=== PATIENT | female | born 1960 | race Caucasian/White ===

== ENCOUNTER → 2019-07-17 10:15 | Outpatient (BNVA) | payer BC, SELFPAY | PROVIDERS: Family Provider Nurse Practitioner; PCP Nurse Practitioner; Visit Provider Nurse Practitioner | DX: Z00.00 Encounter for general adult medical examination without abnormal findings (principal); Z12.39 Encounter for other screening for malignant neoplasm of breast; L29.9 Pruritus, unspecified | CPT/HCPCS: 80053; 80061; 81003; 85025 ==

== ENCOUNTER → 2020-10-01 08:49 | Outpatient (BNVA) | payer BC, SELFPAY | PROVIDERS: Family Provider Nurse Practitioner; PCP Nurse Practitioner; Visit Provider Nurse Practitioner | DX: Z00.00 Encounter for general adult medical examination without abnormal findings (principal); Z12.39 Encounter for other screening for malignant neoplasm of breast; Z12.11 Encounter for screening for malignant neoplasm of colon | CPT/HCPCS: 80053; 80061; 84443; 85025 ==

== ENCOUNTER → 2021-01-21 09:38 | Outpatient (BNVA) | payer BC, SELFPAY | PROVIDERS: Family Provider Nurse Practitioner; PCP Nurse Practitioner; Visit Provider Nurse Practitioner Family | DX: R10.9 Unspecified abdominal pain (principal); N39.0 Urinary tract infection, site not specified | CPT/HCPCS: 81000 ==

== ENCOUNTER → 2021-09-21 10:29 | Outpatient (BNVA) | payer BC, SELFPAY | PROVIDERS: Family Provider Nurse Practitioner; PCP Nurse Practitioner; Visit Provider Nurse Practitioner | DX: Z13.6 Encounter for screening for cardiovascular disorders | CPT/HCPCS: 80053; 80061; 81000; 85025 ==

== ENCOUNTER 2021-12-04 08:52 | Outpatient (CLI) | payer BC, SELFPAY ==
--- NOTE | 2021-12-04 08:59 | MM_ITS ---
WS: [id number] BILATERAL SCREENING DIGITAL BREAST TOMOSYNTHESIS MAMMOGRAM WITH CAD HISTORY: Screening. COMPARISON: 11/11/2020 and 02/01/2018 Bilateral CC and MLO views with tomosynthesis and synthetic mammography submitted. Computer aided det ection analyzed. Breast composition: The breasts are heterogeneously dense, which may obscure small masses. No suspici ous masses, microcalcifications or architectural distortion. Benign calcifications in each breast. MM/[id number] IMPRESSION: BI-RADS: 2-Benign FOLLOW UP: 1 Year Follow-up
== END 2021-12-04 08:53 | disposition home or self-care (01) ==
LOC: RAD 08:54
PROVIDERS: PCP Nurse Practitioner; Visit Provider Nurse Practitioner
DX: Z12.31 Encounter for screening mammogram for malignant neoplasm of breast (principal)
CPT/HCPCS: 77063; 77067

== ENCOUNTER → 2022-07-05 08:46 | Outpatient (BNVA) | payer BC, SELFPAY | PROVIDERS: PCP Nurse Practitioner; Visit Provider Nurse Practitioner Family | DX: R10.30 Lower abdominal pain, unspecified (principal) | CPT/HCPCS: 80053; 81000; 85025 ==

== ENCOUNTER → 2022-07-05 09:39 | Outpatient (BNVA) | payer BC, SELFPAY | PROVIDERS: PCP Nurse Practitioner; Visit Provider Nurse Practitioner Family | DX: R10.30 Lower abdominal pain, unspecified (principal) | CPT/HCPCS: 74018 ==

== ENCOUNTER → 2022-07-07 10:51 | Outpatient (BNVA) | payer BC, SELFPAY | PROVIDERS: PCP Nurse Practitioner; Visit Provider Nurse Practitioner Family | DX: M25.512 Pain in left shoulder (principal) | CPT/HCPCS: 73030 ==

== ENCOUNTER 2022-07-23 09:46 | Day surgery (SDC) | payer BC, SELFPAY ==
[2022-07-22 10:10] VITALS: BMI 26.0
[2022-07-23 10:07] VITALS: BP 118/81; PULSE 73; RESP 18; TEMP 36.5; O2SAT 98
[2022-07-23] MEDS: sodium chloride 0.9% 1,000 ML 30 ML IV (10:10)
--- NOTE | 2022-07-23 10:45 | ANES.PREANE2 ---
Pre-Anesthetic Assessment Height/Weight: Height 1.6 m Weight 66.678 kg Temp Pulse Resp BP Pulse Ox O2 Del Method 97.7 F 73 18 118/81 98 07/23/22 10:07 07/23/22 10:07 07/23/22 10:07 07/23/22 10:07 07/23/22 10:07 07/23/22 10:07 Preop Diagnosis: screening Operation Date: 07/23/22 10:45 [place] [id number] colon Z12.11(Not Applicable) - Osiel Gallagher DO Familial anesthetic complications: none Was Beta Constantino taken within 24 hours: N/A Was Clonidine taken within 24 hours: N/A Last intake: Intake Last Liquid Date 07/22/22 Last Liquid Time 19:30 Last Solid Date 07/20/22 Last Solid Time 18:00 Last Intake: 19:30 Social No alcohol and No tobacco Exam alert, oriented x 3, clear to auscultation bilaterally and regular rate & rhythm Airway Submandibular: within normal limits Cervical ROM: within normal limits Mallampati: Class II Dentition: full Pulmonary None reported CV/HEM None reported None reported Hepatic None reported GI None reported Metabolic None reported Musc/skel Osteoarthritis/DJD Neuropsych None reported Anesthetic Plan ASA status: 1 Anesthesia: MAC Risk of > 500 ml blood loss (7ml/kg in children): No Medications/Allergies Home Medications Medication Instructions Recorded Confirmed Last Taken Type lactobacillus combination no.8 1 cap PO BID 07/04/19 07/23/22 07/20/22 History [Adult Probiotic] multivitamin (Daily Multi-Vitamin 1 tab PO DAILY 07/04/19 07/23/22 07/20/22 History tablet) rizatriptan 10 mg tablet (Maxalt) See Rx Instructions PO .COMPLEX 07/22/22 07/23/22 2 Weeks Ago History PRN Migraine Headache ~07/08/22 Allergies Allergy/AdvReac Type Severity Reaction Status Date / Time moxifloxacin [From Avelox] Allergy Intermediate Unknown Verified 07/23/22 10:04 pseudoephedrine AdvReac Unknown Verified 07/23/22 10:04 [From Sudafed] venlafaxine AdvReac ADR-Cramping Verified 07/23/22 10:04 of the Muscles Current Medications Generic Name Dose Route Start Last Admin Trade Name Freq PRN Reason Stop Dose Admin Sodium Chloride 1,000 mls @ 30 mls/hr 07/23/22 10:00 07/23/22 10:10 Sodium Chloride 0.9% IV 07/24/22 09:59 30 mls/hr .Q24H GABRIELLE Administration PFSH Anesthesia Medical History Breast cancer screening by mammogram Chronic pruritus Surgical History H/O: hysterectomy 1982 without BSO History of bladder repair surgery 1982 [place] [facility] [place] History Mother COPD (chronic obstructive pulmonary disease) Heart disease Other Cancer Social History Smoking and tobacco status: never smoked Smoking risk assessment/counseling performed?: No Alcohol intake: current Desire information about alcohol rehabilitation?: No Counseling given: No Desire information about substance/drug rehabilitation?: No Counseling given: No Caregiver/support person: No Lives independently: Yes Household members: spouse Housing: House Marital status: Number of children: 2 service: No Current occupational status: retired Current gender identity: Female Data Anesthesia Cardiac Studies: No Data to Display
--- NOTE | 2022-07-23 11:21 | PM.HP ---
Providers/Chief Complaint Primary Care Provider: MARY ANN Acosta Chief Complaint: Encounter for screening History of Present Illness Marlena Puentes is a 61 year old female who presents for a screening colonoscopy. Her last 1 was 12 or 13 years ago. No polyps were removed at that time, reportedly. She denies any abdominal pain, nausea, emesis, diarrhea, constipation, hematochezia and/or melena. Denies any family history of colon cancer. Medications/Allergies Home Medications Medication Instructions Recorded Confirmed Last Taken Type lactobacillus combination no.8 1 cap PO BID 07/04/19 07/23/22 07/20/22 History [Adult Probiotic] multivitamin (Daily Multi-Vitamin 1 tab PO DAILY 07/04/19 07/23/22 07/20/22 History tablet) rizatriptan 10 mg tablet (Maxalt) See Rx Instructions PO .COMPLEX 07/22/22 07/23/22 2 Weeks Ago History PRN Migraine Headache ~07/08/22 Allergies Allergy/AdvReac Type Severity Reaction Status Date / Time moxifloxacin [From Avelox] Allergy Intermediate Unknown Verified 07/23/22 10:04 pseudoephedrine AdvReac Unknown Verified 07/23/22 10:04 [From Sudafed] venlafaxine AdvReac ADR-Cramping Verified 07/23/22 10:04 of the Muscles PFSH Acute PFSH: Medical History Breast cancer screening by mammogram Chronic pruritus Surgical History H/O: hysterectomy 1982 without BSO History of bladder repair surgery 1982 [place] [facility] [place] History Mother COPD (chronic obstructive pulmonary disease) Heart disease Other Cancer Social History Smoking and tobacco status: never smoked Smoking risk assessment/counseling performed?: No Alcohol intake: current Desire information about alcohol rehabilitation?: No Counseling given: No Desire information about substance/drug rehabilitation?: No Counseling given: No Caregiver/support person: No Lives independently: Yes Household members: spouse Housing: House Marital status: Number of children: 2 service: No Current occupational status: retired Current gender identity: Female Vitals/I&O/Wt Last Vital Signs Temp 97.7 F 07/23/22 10:07 Pulse 73 07/23/22 10:07 Resp 18 07/23/22 10:07 BP 118/81 07/23/22 10:07 Pulse Ox 98 07/23/22 10:07 O2 Del Method 07/23/22 10:07 Weight last 48 hrs Weight 147 lb A&P Assessment and plan (1) Colon cancer screening: Plan Colonoscopy The risks and benefits of the procedure, including bleeding, infection, intestinal perforation requiring surgery, missed lesion were explained to the patient. The patient is understanding of the risks and wishes to proceed. Attestations Medical Necessity Statement*: Home Coding Level of Care Code Acute Code for Chg Fwd Diagnoses Colon cancer screening Z12.11
[2022-07-23 11:36] VITALS: BP 130/72; PULSE 69; RESP 18; TEMP 36.1; O2SAT 97
[2022-07-23 12:12] VITALS: BP 135/96; PULSE 79; RESP 18; O2SAT 97
--- NOTE | 2022-07-23 17:59 | ANE.PACU2 ---
Inpatient post-anesthesia follow up: Airway intact: Yes Vital signs: Temperature 97.0 F Pulse Rate 79 Respiratory Rate 18 Blood Pressure 135/96 Pulse Oximetry 97 Oxygen Delivery Me thod Room Air Oxygen Flow Rate Fraction of Inspir ed Oxygen Hydration adequate: Yes Nausea and vomiting: No Pain level: 1 Mental status: Baseline
== END 2022-07-23 12:58 | disposition home or self-care (01) ==
PROVIDERS: PCP Nurse Practitioner; Visit Provider Surgery
PROC: 0DJD8ZZ Inspection of Lower Intestinal Tract, Via Natural or Artificial Opening Endoscopic (ICD-10-PCS; CPT 45378; principal; 2022-07-23 10:45)
DX: Z12.11 Encounter for screening for malignant neoplasm of colon (principal)
CPT/HCPCS: 45378; J2704; J7030

== ENCOUNTER 2022-07-26 07:05 | Outpatient (CLI) | payer BC, SELFPAY ==
--- NOTE | 2022-07-26 08:30 | CT_ITS ---
WS: [id number] CT ABDOMEN AND PELVIS WITH CONTRAST HISTORY: R10.30 - Lower abdominal pain, unspecified TECHNIQUE: Imaging performed of the abdomen and pelvis with IV contrast. Single phase imaging of the abdomen. Coronal and sagittal reformats are submitted. All CT scans at [facility] use at [address] one of these dose optimization techniques: automated exposure control; mA and/or kV adjustment per patient size (includes targeted exams where dose is matched to clinical indication); or iterative re construction. IV CONTRAST: Omnipaque 350; 100 mL IV. Oral contrast: Yes. DLP: 429.11 mGy.cm COMPARISON: None available. Lower thorax: Significant breathing motion artifact at the lung bases obscuring detail. Nondiagnostic evaluation. Heart is normal size. No hiatal hernia. Liver/biliary system: Normal size with no intrahepatic dilatation. Normal portal vein. Gallbladder: Normal. No gallstones or wall thickening. No pericholecystic fluid. Pancreas: Pancreas is normal size. 3.7 mm cyst in the mid body of the pancreas closely associated wit h the duct. There is no duct dilatation. No mass. Spleen: Normal size spleen. No mass or infarct. Adrenal glands: Normal. Right kidney: Normal. Left kidney: Normal. Aorta: Normal. Lymphadenopathy: None. Free fluid: None. GI tract: Negative stomach and small bowel. No obstruction. The appendix is not definitely visualized . No evidence for appendicitis. Normal colon. Abdominal wall: Unremarkable abdominal wall. No hernia. Pelvis: Status post hysterectomy. No free fluid or adenopathy or mass. Negative urinary bladder. Bones: Increase in lumbar lordosis. CT/CT abdomen pelvis w con* [id number] IMPRESSION: 1. No acute abdominal or pelvic abnormalities. 2. Status post hysterectomy. No pelvic mass or fluid. 3. Low-attenuation 3.7 mm lesion in the body of the pancreas. Differential inc ludes serous cystic neoplasm and IPMN. Recommend serial follow-up imaging. 3 mo nth pancreatic MRI with and without contrast or enhancement CT abdomen (portal venous and arterial phases)
[2022-07-26] MEDS: iohexol 350 mg/mL 500 mL Btl (per mL) PO (08:38)
[2022-07-26] MEDS: iohexol 350 mg/mL 500 mL Btl (per mL) IV (09:10)
== END 2022-07-26 07:06 | disposition home or self-care (01) ==
PROVIDERS: PCP Nurse Practitioner; Visit Provider Nurse Practitioner Family
DX: K59.00 Constipation, unspecified (principal); R10.30 Lower abdominal pain, unspecified; R35.0 Frequency of micturition; K86.9 Disease of pancreas, unspecified; Z90.710 Acquired absence of both cervix and uterus
CPT/HCPCS: 74177; 80053; 81000; 85025; Q9967

== ENCOUNTER → 2022-08-12 11:34 | Outpatient (BNVA) | payer BC, SELFPAY | PROVIDERS: PCP Nurse Practitioner; Referring Provider Nurse Practitioner Family; Visit Provider Student in an Organized Health Care Education/Training Program | DX: M75.42 Impingement syndrome of left shoulder (principal) | CPT/HCPCS: 73030 ==

== ENCOUNTER 2022-08-25 06:00 | Outpatient (RCR) | payer BC, SELFPAY | END 2022-08-27 23:59 | disposition home or self-care (01) | LOC: SPT 06:00 | PROVIDERS: Visit Provider Student in an Organized Health Care Education/Training Program | DX: M25.512 Pain in left shoulder (principal) | CPT/HCPCS: 97110; 97161 ==

== ENCOUNTER 2022-08-28 01:00 | Outpatient (RCR) | payer BC, SELFPAY | END 2022-09-26 23:59 | disposition home or self-care (01) | LOC: SPT 01:00 | PROVIDERS: Visit Provider Student in an Organized Health Care Education/Training Program | DX: M25.512 Pain in left shoulder (principal) | CPT/HCPCS: 97110; 97140 ==

== ENCOUNTER → 2022-09-22 07:58 | Outpatient (BNVA) | payer BC, SELFPAY | PROVIDERS: Visit Provider Nurse Practitioner | DX: Z00.00 Encounter for general adult medical examination without abnormal findings (principal) | CPT/HCPCS: 80053; 80061; 85025 ==

== ENCOUNTER 2022-09-27 06:00 | Outpatient (RCR) | payer BC, SELFPAY | END 2022-10-27 23:59 | disposition home or self-care (01) | LOC: SPT 06:00 | PROVIDERS: PCP Nurse Practitioner; Visit Provider Student in an Organized Health Care Education/Training Program | DX: M25.512 Pain in left shoulder (principal) | CPT/HCPCS: 97110; 97140 ==

== ENCOUNTER → 2022-09-29 13:28 | Outpatient (BNVA) | payer BC, SELFPAY | PROVIDERS: PCP Nurse Practitioner; Visit Provider Nurse Practitioner | DX: M54.2 Cervicalgia (principal); M54.50 Low back pain, unspecified; M54.6 Pain in thoracic spine; M80.88XD Other osteoporosis with current pathological fracture, vertebra(e), subsequent encounter for fracture with routine healing; M47.814 Spondylosis without myelopathy or radiculopathy, thoracic region; M41.86 Other forms of scoliosis, lumbar region | CPT/HCPCS: 72040; 72072; 72100 ==

== ENCOUNTER 2022-12-10 07:58 | Outpatient (CLI) | payer BC, SELFPAY ==
--- NOTE | 2022-12-10 08:37 | MM_ITS ---
WS: [id number] Bilateral screening 3D tomosynthesis digital mammogram, 12/10/2022 Clinical Data: Z12.39 - Encounter for other screening for malignant neop... Comparison: 12/04/2021, 11/11/2020, 02/01/2018, 08/06/2015, 04/12/2013, 03/07/2012, 11/16/2010, 07/14/2009, 12/28, 01/20/2006. Findings: The breast parenchymal pattern shows heterogeneous density. No spiculated masses or clustered calcifi cations are seen. There are no secondary signs of carcinoma. MM/[id number] Impression: 1. Negative bilateral mammogram unchanged. 2. Recommend annual screening mammograms. BIRADS: 1-Negative FOLLOW UP: 1 Year Follow-up The CAD bill checker was used.
== END 2022-12-10 07:59 | disposition home or self-care (01) ==
PROVIDERS: PCP Nurse Practitioner; Visit Provider Nurse Practitioner
DX: Z12.31 Encounter for screening mammogram for malignant neoplasm of breast (principal)
CPT/HCPCS: 77063; 77067

== ENCOUNTER 2023-01-25 10:43 | Outpatient (CLI) | payer BC, SELFPAY ==
--- NOTE | 2023-01-25 11:00 | MR_ITS ---
WS: [id number] MRI/MRCP OF THE ABDOMEN WITHOUT GADOLINIUM ENHANCEMENT TECHNIQUE: Coronal T2 Fase BH, Axial T2 Fase BH, Axial T2 FS BH, Zxial 3D Anton BH, Axial DWI BH, 2D MRCP Radial BH, 3D MRCP (Resp), and Axial 3D Dyn BH Post sequences. CLINICAL INFORMATION: K86.89 - Other specified diseases of pancreas COMPARISON: CT abdomen pelvis 07/26/2022 FINDINGS: Previous described tiny lesion within the body of the pancreas measuring approximately 3.5 mm appears unchanged since the prior CT. No evidence of progression. No abnormal gadolinium enhancement on the post gadolinium imaging. This is contiguous or adjacent to the pancreatic duct and is too small to de finitively characterize but may present a tiny IPMN. Considering stability recommend 12-month follow- up with contrast-enhanced CT abdomen pelvis with pancreatic protocol. Normal liver. Normal gallbladder. Normal portal vein and splenic vein. Otherwise normal pancreatic pa renchymal enhancement. Normal common bile duct. Normal adrenal glands. No hydronephrosis in either ki dney. Normal caliber abdominal aorta. No other suspicious findings. Impression: 1. Tiny lesion within the body of the pancreas measuring 3.5 mm is unchanged as the prior CT. No enh ancement. This is too small to definitively characterize and may present a tiny IPMN. Recommend 12-mo nth follow-up contrast-enhanced CT abdomen pelvis with pancreatic protocol. 2. No other suspicious abnormalities.
[2023-01-25] MEDS: gadobenate dimeglumine 20 mL vial IV (12:43)
== END 2023-01-25 10:44 | disposition home or self-care (01) ==
PROVIDERS: PCP Nurse Practitioner; Visit Provider Nurse Practitioner
DX: K86.89 Other specified diseases of pancreas (principal)
CPT/HCPCS: 74183; A9577

== ENCOUNTER → 2023-01-26 08:24 | Outpatient (BNVA) | payer BC, SELFPAY | PROVIDERS: PCP Nurse Practitioner; Visit Provider Nurse Practitioner | DX: E78.2 Mixed hyperlipidemia (principal) | CPT/HCPCS: 80053; 80061 ==

== ENCOUNTER → 2023-07-14 08:51 | Outpatient (BNVA) | payer MEDICARE, SELFPAY | PROVIDERS: PCP Nurse Practitioner; Visit Provider Nurse Practitioner | DX: Z00.00 Encounter for general adult medical examination without abnormal findings (principal) | CPT/HCPCS: 80053; 80061; 81000; 82306; 82607; 84443; 85025 ==

== ENCOUNTER 2023-07-25 14:58 | Outpatient (CLI) | payer MEDICARE, SELFPAY ==
--- NOTE | 2023-07-25 15:30 | XR_ITS ---
WS: [id number] DEXA (DUAL ENERGY X-RAY ABSORPTIOMETRY) Bone mineral density was performed using a [employer] machine. HISTORY: Z78.0 - Asymptomatic menopausal state COMPARISON: None available. Lumbar spine BMD (L1-L4): 0.809 g/cm2 T score: -3.1 Z score: -1.6 Total hip BMD: Left: 0.764 g/cm2. T score: -1.9 Z score: -0.8 Right: 0.747 g/cm2. T score: -2.1 Z score: -1.0 10 year probability of a major osteoporotic fracture is 40.3%. IMPRESSION: OSTEOPOROSIS based upon the WHO classification for females.
== END 2023-07-25 14:59 | disposition home or self-care (01) ==
LOC: RAD 14:58
PROVIDERS: PCP Nurse Practitioner; Visit Provider Nurse Practitioner
DX: Z78.0 Asymptomatic menopausal state (principal); M81.0 Age-related osteoporosis without current pathological fracture
CPT/HCPCS: 77080

== ENCOUNTER 2023-08-30 08:23 | Outpatient (CLI) | payer MEDICARE, SELFPAY ==
--- NOTE | 2023-08-30 08:45 | USCV_ITS ---
Gabino Puentes Age: 63 Gender: F : 1960 Exam Date: 08/30/2023 08:39 Ordering Phys: Victorina Armando Technologist: LAZARUS [place] [facility] [place]ication: Screening AO for aneurysm HISTORY: SCREENING Diameter (cm) AP x Transverse x Length Velocity (cm/s) Waveform Prox Aorta: 1.89 x 2.09 x 47.40 Mid Aorta: 1.49 x 1.84 x Distal Aorta: 1.49 x 2.01 x 57.60 Right Iliac Prox: 0.97 x 1.14 x 108.40 Left Iliac Prox: 0.68 x 0.89 x 81.00 Stent Prox Landing x x Aneurysmal Sac Max x x Lt Lat Sac Dim Rt Lat Sac Dim Stent Dist Landing x x Right Iliac Stent x x Left Iliac Stent x x Right Renal Art Left Renal Art FINDINGS: CONCLUSIONS No evidence of abdominal aortic or bilateral iliac aneurysm. Matthew Bhat MD (Electronically Signed) Final Date: 30 August 2023 12:27 S
== END 2023-08-30 08:24 | disposition home or self-care (01) ==
LOC: RAD 08:24
PROVIDERS: PCP Nurse Practitioner; Visit Provider Nurse Practitioner
DX: Z13.6 Encounter for screening for cardiovascular disorders (principal)
CPT/HCPCS: 76706

== ENCOUNTER → 2023-10-12 09:05 | Outpatient (BNVA) | payer MEDICARE, SELFPAY | PROVIDERS: PCP Nurse Practitioner; Visit Provider Nurse Practitioner | DX: M16.11 Unilateral primary osteoarthritis, right hip (principal) | CPT/HCPCS: 73502 ==

== ENCOUNTER 2023-12-15 09:57 | Outpatient (CLI) | payer MEDICARE, SELFPAY ==
--- NOTE | 2023-12-15 10:08 | MM_ITS ---
WS: [id number] BILATERAL SCREENING DIGITAL TOMOSYNTHESIS MAMMOGRAM WITH CAD HISTORY: SCREENING COMPARISON: 12/10/2022, 12/04/2021 and 11/11/2020 Bilateral CC and MLO views with tomosynthesis and synthetic mammography submitted. Computer aided det ection analyzed. Breast composition: The breasts are heterogeneously dense, which may obscure small masses. No suspici ous masses, microcalcifications or architectural distortion. Benign calcifications RIGHT breast. MM/[id number] IMPRESSION: BI-RADS: 2-Benign FOLLOW UP: 1 Year Follow-up
== END 2023-12-15 09:58 | disposition home or self-care (01) ==
LOC: RAD 09:58
PROVIDERS: PCP Nurse Practitioner; Visit Provider Nurse Practitioner
DX: Z12.31 Encounter for screening mammogram for malignant neoplasm of breast (principal); R92.333 Mammographic heterogeneous density, bilateral breasts; R92.1 Mammographic calcification found on diagnostic imaging of breast
CPT/HCPCS: 77063; 77067

== ENCOUNTER → 2024-03-05 09:01 | Outpatient (BNVA) | payer MEDICARE, SELFPAY | PROVIDERS: PCP Nurse Practitioner; Visit Provider Nurse Practitioner | DX: E78.2 Mixed hyperlipidemia (principal) | CPT/HCPCS: 80053; 80061 ==

== ENCOUNTER 2024-07-11 06:00 | Outpatient (RCR) | payer MEDICARE, SELFPAY | END 2024-07-27 23:59 | disposition home or self-care (01) | LOC: APT 06:00 | PROVIDERS: Visit Provider General Practice | DX: G89.4 Chronic pain syndrome (principal) | CPT/HCPCS: 97110; 97161 ==

== ENCOUNTER 2024-07-28 06:00 | Outpatient (RCR) | payer MEDICARE, SELFPAY | END 2024-08-27 23:59 | disposition home or self-care (01) | LOC: APT 06:00 | PROVIDERS: Visit Provider General Practice | DX: G89.4 Chronic pain syndrome (principal) | CPT/HCPCS: 97110; 97112; 97530 ==

== ENCOUNTER → 2024-08-21 08:27 | Outpatient (BNVA) | payer MEDICARE, SELFPAY | PROVIDERS: PCP Nurse Practitioner; Visit Provider Nurse Practitioner | DX: E78.2 Mixed hyperlipidemia (principal) | CPT/HCPCS: 80053; 80061; 84443 ==

== ENCOUNTER 2024-08-28 05:00 | Outpatient (RCR) | payer MEDICARE, SELFPAY | END 2024-09-26 23:59 | disposition home or self-care (01) | LOC: APT 05:00 | PROVIDERS: PCP Nurse Practitioner; Visit Provider General Practice | DX: G89.4 Chronic pain syndrome (principal) | CPT/HCPCS: 97110; 97112; 97530 ==

== ENCOUNTER 2024-09-04 04:50 | Emergency (ER) | payer MEDICARE, SELFPAY ==
[2024-09-04 04:54] VITALS: BP 158/65; PULSE 107; RESP 18; TEMP 36.5; O2SAT 96; BMI 18.4
[2024-09-04 05:16] LABS: Basophils % 0.4 %; Eosinophils # 0.1 10^3/uL (0.0-0.8); Eosinophils % 0.7 %; Hematocrit 47.5 % (36-47); Lymphocytes # 1.1 10^3/uL (0.8-4.8); Lymphocytes % 9.2 %; Mean Corpuscular HGB Conc 33.3 g/dL (30-55); Mean Corpuscular Hemoglobin 30.6 pg (27-33); Mean Corpuscular Volume 91.9 fl (85-98); Mean Platelet Volume 9.4 fL (7.4-10.4); Monocytes # 0.6 10^3/uL (0.2-0.9); Monocytes % 4.8 %; Neutrophils # 9.66 10^3/uL (1.8-7.7); Neutrophils % 84.5 %; Nucleated Red Blood Cells % 0 %; Platelet Count 248 10^3/cmm (157-399); Red Blood Count 5.17 10^6/uL (3.85-5.65); Red Cell Distribution Width 12.1 % (12.1-15.1); White Blood Count 11.42 10^3/uL (3.29-11.43)
[2024-09-04 05:25] VITALS: BP 130/70; PULSE 85; O2SAT 94
[2024-09-04] MEDS: ondansetron 2 mg/ML SDV 2 mL 4 MG IVP (05:27)
[2024-09-04 05:34] LABS: Alanine Aminotransferase 15 U/L (0-33); Albumin Level 4.6 g/dL (3.5-5.2); Alkaline Phosphatase 92 U/L (35-105); Blood Urea Nitrogen 20 mg/dL (8-23); Calcium 9.2 mg/dL (8.5-10.5); Carbon Dioxide 22 mmol/L (22-29); Chloride 104 mmol/L (98-107); Creatinine Clr Calc Pharmacy 54.9388; Globulin 3.1 g/dL (1.3-4.6); Glucose 115 mg/dL (65-115); Lipase 27 U/L (13-60); Magnesium 2.1 mg/dL (1.7-2.3); Osmolality Calculated 294 mOsm/kg (285-295); Sodium 140 mmol/L (136-145); Total Bilirubin 0.5 mg/dL (0.15-1.2); Total Protein 7.7 g/dL (6.6-8.7)
--- NOTE | 2024-09-04 05:37 | ED_ITS ---
HPI - Nausea/Vomiting/Diarrhea 2 General: Chief complaint: Nausea/Vomiting/Diarrhea Stated complaint: D\V Time Seen by Provider: 09/04/24 05:23 History of Present Illness: 64-year-old female presents emergency ro om complaining nausea vomiting diarrhea that began last night. She thinks it is a result of something she ate. No hematochezia melena hematemesis or coffee-ground emesis. No dysuria urgency or frequency or hematuria. Patient previously has had tubal ligation total abdominal hysterectomy and reported incidental appendectomy at the time of hysterectomy Associated nausea: Yes Associated symtoms: Reports nausea; Denies chest pain or dysuria Related Data Home Medications ?Medication ?Instructions ?Recorded ?Confirmed aspirin 81 mg tablet,delayed 81 mg PO DAILY 08/17/23 0 09/04/24 release famotidine 20 mg tablet 20 mg PO DAILY 03/05/2401/21 pravastatin 10 mg tablet 10 mg PO DAILY 09/04/2401/21 Previous Rx's ?Medication ?Instructions ?Recorded rizatriptan 10 mg tablet (Maxalt) See Rx Instructions PO .COMPLEX #9 06/30/24 tabs estradiol 0.01% (0.1 mg/gram) 1 appful vaginal .weekly #42.5 08/21/24 vaginal cream (Estrace) grams promethazine 25 mg tablet 25 mg PO Q6H PRN nausea and 09/04/24 vomiting #20 tabs Allergies Allergy/AdvReac Type Severity Reaction Status Date / Time moxifloxacin (From Avelox) Allergy Intermediate Unknown Verified 09/04/24 04:57 pseudoephedrine (From AdvReac Unknown Verified 09/04/24 04:57 Sudafed) venlafaxine AdvReac ADR-Cramping Verified 09/04/24 04:57 of the Muscles Review of Systems 2 Const: Denies: fever(s) or chills Card: Denies: chest pain Resp: Denies: dyspnea GI: Reports: abdominal pain, nausea, vomiting and diarrhea : Denies: dysuria, urinary frequency or urinary urgency Musc: Denies: neck pain or back pain Skin/Breast: Denies: rash PFSH ED 2 PFSH: Medical History Chronic migraine Osteoporosis Chronic pruritus Breast cancer screening by mammogram Surgical History History of bladder repair surgery 1982 History of colonoscopy 2012 [facility] [place] H/O: hysterectomy 1982 without BSO Family History Mother COPD (chronic obstructive pulmonary disease) Heart disease Other Cancer Social History Smoking and tobacco/nicotine status: never used tobacco/nicotine Alcohol intake: current Substance/Drug Use: never Adopted: No Caregiver/support person: No Lives independently: Yes Household members: spouse Housing: House Marital status: Number of children: 2 service: No Current occupational status: retired Do you think of yourself as: Straight/Heterosexual Current gender identity: Female Physical Exam 2 Const: COMMON NORMALS: no acute distress GENERAL APPEARANCE: cooperative and comfortable ORIENTATION/CONSCIOUSNESS: Yes awake, Yes oriented to person, Yes oriented to place and Yes oriented to time HENMT: COMMON NORMALS: normocephalic, atraumatic and hearing grossly normal bilaterally HEAD & SCALP: normocephalic and atraumatic Resp: COMMON NORMALS: normal respiratory effort, No retractions, No use of accessory muscles and clear to auscultation bilaterally AUSCULTATION: clear to auscultation bilaterally Cardio: COMMON NORMALS: regular rate, regular rhythm and No murmurs present (Cardio) RATE: regular rate RHYTHM: regular rhythm GI: COMMON NORMALS: Soft to palpation and No hepatosplenomegaly present A USCULTATION: Yes normoactive bowel sounds PALPATION: Yes Soft to palpation, No Tenderness to palpation present (GI), No Guarding due to palpation present (GI) and Yes No hepatosplenomegaly present Extremity: COMMON NORMALS: normal to inspection, capillary refill normal, no clubbing, cyanosis or edema, no calf tenderness and no pedal edema Neuro: SENSORIUM/ORIENTATION: Yes oriented to person, Yes oriented to place and Yes oriented to time Skin: COMMON NORMALS: no rashes or lesions noted GENERAL SKIN EXAM: no rashes or lesions noted Course 2 Vital Signs: Vital signs: Vital Signs Temperature 97.7 F 09/04/24 04:54 Pulse Rate 78 09/04/24 06:47 Respiratory Rate 18 09/04/24 04:54 Blood Pressure 123/50 09/04/24 06:47 Pulse Oximetry 96 09/04/24 06:47 Oxygen Delivery Me thod Room Air 09/04/24 04:54 MDM - Nausea/Vomiting/Diarrhea Medical Decision Making Labs reviewed. Vital signs are all stable no significant anion gap BUN and creatinine normal and do not think she particularly dehydrated. She was able to take fluids without vomiting but did precipitate an episode of loose stools. She has not had any m hematochezia or melena her hemoglobin is actually slightly elevated. Will discharge patient home clear liquid diet encouraged her to use antiemetics as needed she did have quite a bit of improvement with the antiemetics given here. Abdominal exam benign no indication for advanced imaging at this time Medical Records I reviewed the patient's medical records. Lab Data I reviewed the patient's lab results. 09/04/24 04:58 09/04/24 04:58 Laboratory Results WBC 11.42 10^3/uL (3.29-11.43) 09/04/24 04:58 RBC 5.17 10^6/uL (3.85-5.65) 09/04/24 04:58 Hgb 15.80 g/dL (11.27-16.99) 09/04/24 04:58 Hct 47.5 % (36-47) H 09/04/24 04:58 MCV 91.9 fl (85-98) 09/04/24 04:58 MCH 30.6 pg (27-33) 09/04/24 04:58 MCHC 33.3 g/dL (30-55) 09/04/24 04:58 RDW 12.1 % (12.1-15.1) 09/04/24 04:58 Plt Count 248 10^3/cmm (157-399) 09/04/24 04:58 MPV 9.4 fL (7.4-10.4) 09/04/24 04:58 Neut % (Auto) 84.5 % 09/04/24 04:58 Lymph % (Auto) 9.2 % 09/04/24 04:58 [place] % (Auto) 4.8 % 09/04/24 04:58 Eos % (Auto) 0.7 % 09/04/24 04:58 Baso % (Auto) 0.4 % 09/04/24 04:58 Neut # (Auto) 9.66 10^3/uL (1.8-7.7) H 09/04/24 04:58 Lymph # (Auto) 1.1 10^3/uL (0.8-4.8) 09/04/24 04:58 [place] # (Auto) 0.6 10^3/uL (0.2-0.9) 09/04/24 04:58 Eos # (Auto) 0.1 10^3/uL (0.0-0.8) 09/04/24 04:58 Baso # (Auto) 0.0 10^3/uL (0.0-0.1) 09/04/24 04:58 Nucleated RBC % (auto) 0 % 09/04/24 04:58 Nucleated RBCs # 0.0 /100WBC 09/04/24 04:58 Sodium 140 mmol/L (136-145) 09/04/24 04:58 Potassium 4.4 mmol/L (3.5-5.1) 09/04/24 04:58 Chloride 104 mmol/L (98-107) 09/04/24 04:58 Carbon Dioxide 22 mmol/L (22-29) 09/04/24 04:58 Anion Gap 18.4 (5-19) 09/04/24 04:58 BUN 20 mg/dL (8-23) 09/04/24 04:58 Creatinine 0.6 mg/dL (0.5-0.9) 09/04/24 04:58 GFR Calculation 100.0 mL/min (90-130) 09/04/24 04:58 Glucose 115 mg/dL (65-115) 09/04/24 04:58 Calculated Osmolality 294 mOsm/kg (285-295) 09/04/24 04:58 Calcium 9.2 mg/dL (8.5-10.5) 09/04/24 04:58 Magnesium 2.1 mg/dL (1.7-2.3) 09/04/24 04:58 Total Bilirubin 0.5 mg/dL (0.15-1.2) 09/04/24 04:58 AST 21 U/L (0-32) 09/04/24 04:58 ALT 15 U/L (0-33) 09/04/24 04:58 Alkaline Phosphatase 92 U/L (35-105) 09/04/24 04:58 Total Protein 7.7 g/dL (6.6-8.7) 09/04/24 04:58 Albumin 4.6 g/dL (3.5-5.2) 09/04/24 04:58 Globulin 3.1 g/dL (1.3-4.6) 09/04/24 04:58 Lipase 27 U/L (13-60) 09/04/24 04:58 Urine Color Yellow (Yellow) 09/04/24 06:10 Urine Appearance Clear (CLEAR) 09/04/24 06:10 Urine pH 7 (5-7) 09/04/24 06:10 Ur Specific [place] 1.010 (1.005-1.030) 09/04/24 06:10 Urine Protein Neg (Negative) 09/04/24 06:10 Urine Glucose (UA) Norm (Normal) 09/04/24 06:10 Urine Ketones Negative (Negative) 09/04/24 06:10 Urine Blood Neg (Negative) 09/04/24 06:10 Urine Nitrate Negative (Negative) 09/04/24 06:10 Urine Bilirubin Neg (Negative) 09/04/24 06:10 Urine Urobilinogen Neg mg/dL (Negative) 09/04/24 06:10 Ur Leukocyte Esterase Negative (Negative) 09/04/24 06:10 Urine RBC 0-2 /hpf (0-2) 09/04/24 06:10 Urine WBC 0-5 /hpf (0-5) 09/04/24 06:10 Ur Squamous Epith Cells 0-5 /hpf (0-5) 09/04/24 06:10 Amorphous Sediment Not Reportable 09/04/24 06:10 Urine Bacteria None seen /hpf (NONE) 09/04/24 06:10 Hyaline Casts 0-4 /lpf H 09/04/24 06:10 No radiology studies performed this visit Discharge Plan Discharge Patient Disposition: Home Clinical Impression: Nausea & vomiting Condition: Stable Prescriptions: New promethazine 25 mg tablet 25 mg PO Q6H PRN (Reason: nausea and vomiting) Qty: 20 0RF No Action aspirin 81 mg tablet,delayed release (DR/EC) 81 mg PO DAILY famotidine 20 mg tablet 20 mg PO DAILY rizatriptan [Maxalt] 10 mg tablet See Rx Instructions PO .COMPLEX Qty: 9 2RF Rx Instructions: take 1 tab at onset of headache; if no relief may repeat 1 tab after at least 2 hrs; max = 3 tabs/24 hr PO estradiol [Estrace] 0.01 % (0.1 mg/gram) cream 1 appful vaginal .weekly Qty: 42.5 2RF pravastatin 10 mg tablet 10 mg PO DAILY Discharge Orders: Discharge ED (Routine); Ordered 09/04/24 Ordered By: Edwar Nava Referrals: Victorina Armando, [facility] JUDGE-C [Primary Care Provider] - Discharge Diet: Clear Liquid Discharge Activity: Increase activity as tolerated Patient Instructions: Opioid Safety, Pain Management Activity Restrictions/Additional Instructions: Thank you for choosing [facility] for your healthcare needs today. It is very important that you follow up as instructed or that you return to the Emergency Department should you have concerns or if your condition changes or worsens in any way. You were seen in the emergency room for vomiting and diarrhea. Suspect you were correct in your assessment that it was likely from food. Your white count was normal your electrolytes and kidney function was normal there is no signs of dehydration. Your vital signs were all within normal ranges. These types of things are usually self-limiting recommend clear liquid diet and antiemetics to relieve the nausea and vomiting. If your symptoms worsen or change return. Print Language: Macedonian Coding Level of Care Code ED Oil Lease Buyer for Andrea Mitchell
[2024-09-04 05:46] LABS: Anion Gap 18.4 (5-19); Aspartate Amino Transferase 21 U/L (0-32); Potassium 4.4 mmol/L (3.5-5.1)
[2024-09-04 06:00] VITALS: BP 127/44; PULSE 76; O2SAT 96
[2024-09-04 06:44] LABS: Bacteria Urine None Seen /hpf; Hyaline Casts Urine 0-4 /lpf; RBC Urine 0-2 /hpf (0-2); Squamous Epithelial Cell Urine 0-5 /hpf (0-5); WBC Urine 0-5 /hpf (0-5)
[2024-09-04 06:47] VITALS: BP 123/50; PULSE 78; O2SAT 96
[2024-09-04 06:47] LABS: Urine Appearance Clear (CLEAR); Urine Color Yellow (Yellow); pH Urine 7 (5-7)
[2024-09-04 06:48] LABS: Add Urine Microscopic? YES; Bilirubin Urine Neg (Negative); Blood Urine Neg (Negative); Glucose Urine UA Norm (Normal); Ketones Urine Negative (Negative); Leukocyte Esterase Urine Negative (Negative); Nitrate Urine Negative (Negative); Protein Urine Neg (Negative); Urobilinogen Urine Neg (Negative)
[2024-09-04] MEDS: prochlorperazine 10 mg/2 mL Inj IVP (07:58)
== END 2024-09-04 07:58 | disposition home or self-care (01) ==
PROVIDERS: Emergency Medicine; Emergency Provider Family Medicine; PCP Nurse Practitioner
DX: R11.2 Nausea with vomiting, unspecified (principal); Z79.82 Long term (current) use of aspirin
CPT/HCPCS: 80053; 81001; 83690; 83735; 85025; 96374; 96375; 99284; J0780; J2405

== ENCOUNTER → 2024-11-05 08:23 | Outpatient (BNVA) | payer MEDICARE, SELFPAY | PROVIDERS: PCP Nurse Practitioner; Visit Provider Nurse Practitioner | DX: E78.2 Mixed hyperlipidemia (principal) | CPT/HCPCS: 80053; 80061 ==

== ENCOUNTER 2024-12-18 09:35 | Outpatient (CLI) | payer MEDICARE, SELFPAY ==
--- NOTE | 2024-12-18 10:20 | MM_ITS ---
WS: [id number] BILATERAL 3D TOMOSYNTHESIS DIGITAL SCREENING MAMMOGRAPHY WITH CAD CLINICAL INFORMATION: Z12.31 - Encounter for screening mammogram for malignant ... HISTORY: Screening mammogram. No current complaints. COMPARISON: 2023 TECHNIQUE: Bilateral CC and MLO views. FINDINGS: The breasts are composed of heterogeneous fibroglandular density tissue, which can limit the detection of small underlying mass lesions. No suspicious mass, asymmetry, calcifications, or architectural distortion. No evidence of malignancy. Punctate and lucent centered calcifications. MM/MM [facility] tomosynthesis [id number] IMPRESSION: DENSITY: The breasts are heterogeneously dense, which may obscure small masses. BI-RADS: 2 - Benign FOLLOW UP: 1 Year Follow-up Recommend return to annual screening mammography.
== END 2024-12-18 09:36 | disposition home or self-care (01) ==
LOC: RAD 09:38
PROVIDERS: PCP Nurse Practitioner; Visit Provider Nurse Practitioner
DX: Z12.31 Encounter for screening mammogram for malignant neoplasm of breast (principal); R92.333 Mammographic heterogeneous density, bilateral breasts; R92.323 Mammographic fibroglandular density, bilateral breasts; R92.1 Mammographic calcification found on diagnostic imaging of breast
CPT/HCPCS: 77063; 77067

== ENCOUNTER → 2025-05-06 08:28 | Outpatient (BNVA) | payer MEDICARE, SELFPAY | PROVIDERS: PCP Nurse Practitioner; Visit Provider Nurse Practitioner | DX: K86.2 Cyst of pancreas (principal); E78.2 Mixed hyperlipidemia | CPT/HCPCS: 80053; 80061 ==